=== PATIENT | female | born 1960 | race Caucasian/White ===

== ENCOUNTER → 2024-09-21 | Outpatient (CLI) | payer OTHER, MEDICARE ==
[2024-09-21 08:08] LABS: BASO # 0.1 10*3/uL (0.0-0.1); BASO % 0.8 % (0.0-1.0); EOS # 0.2 10*3/uL (0.0-0.4); EOS % 2.8 % (1.0-4.0); MEAN CELL VOLUME 88.5 fl (81.0-99.0); MEAN CORPUSCULAR HGB 29.2 pg (27.0-31.0); MONO # 0.4 10*3/uL (0.1-1.0); NEUT # 3.3 10*3/uL (2.3-7.9); NEUT % 54.8 % (47.0-73.0); PLATELET COUNT AUTOMATED 353 10*3/uL (130-400); RED BLOOD COUNT 4.97 10*6/uL (4.10-5.10); RED CELL DISTRI WIDTH 12.6 % (0-14.5)
[2024-09-21 09:06] LABS: ALKALINE PHOSPHATASE 78 U/L (46-116); BUN 15 mg/dl (9-23); CHLORIDE 106 mmol/L (98-107); CHOLESTEROL 229 mg/dL (<200); LDL CHOLESTEROL 153 mg/dL (9-159); POTASSIUM 4.5 mmol/L (3.4-5.1); SGPT/ALT 32 U/L (5-49); TOTAL PROTEIN 7.1 gm/dL (6.0-8.0); TRIGLYCERIDES 131 mg/dl (<150)
== END | disposition home or self-care (01) ==
LOC: LAB 07:41
PROVIDERS: ATTEND Nurse Practitioner Primary Care
DX: E03.9 Hypothyroidism, unspecified (principal); E78.5 Hyperlipidemia, unspecified; E55.9 Vitamin D deficiency, unspecified; R73.03 Prediabetes

== ENCOUNTER 2024-12-13 10:45 | Inpatient (IN) | payer OTHER, MEDICARE ==
[~2024-12-13] VITALS: Ht 167.6 cm; Wt 111.3 kg
[2024-12-13 11:45] VITALS: BP 138/76; BP 138/91
[2024-12-13] MEDS ORDERED: ALBUTEROL SULFATE HF INH (11:58)
[2024-12-13] MEDS ORDERED: BREO ELLIPTA 11 EACH INH (11:59)
[2024-12-13] MEDS ORDERED: LEVOTHYROXINE100 MC1 PO (12:00)
[2024-12-13] MEDS ORDERED: MONTELUKAST SOD10 MG PO (12:00)
[2024-12-13] MEDS ORDERED: BISACODYL 5 MG TAB PO PRN (12:10)
[2024-12-13] MEDS ORDERED: ACETAMINOPHEN 650 MG SUPP R PRN (12:10)
[2024-12-13] MEDS ORDERED: ACETAMINOPHEN 325 MG TAB PO PRN (12:10)
[2024-12-13] MEDS ORDERED: Magnesium Hydroxide 30 ML UDC PO PRN (12:10)
[2024-12-13] MEDS ORDERED: Ondansetron Hydrochloride 4 MG/2 ML VIAL IV PRN (12:10)
[2024-12-13] MEDS ORDERED: BISACODYL 10 MG SUPP R PRN (12:10)
[2024-12-13] MEDS ORDERED: Albuterol Sulf/Ipratropium 3 ML VIAL NEB SCH (12:51)
[2024-12-13] MEDS ORDERED: MAGNESIUM SULFATE 50 ML IV ONE (13:35)
[2024-12-13 13:42] LABS: BASO % 0.3 % (0.0-1.0); EOS # 0.1 10*3/uL (0.0-0.4); EOS % 0.6 % (1.0-4.0); HEMATOCRIT 40.9 % (37.0-47.0); MEAN CELL VOLUME 86.8 fl (81.0-99.0); MEAN CORPUSCULAR HGB 29.3 pg (27.0-31.0); MEAN CORPUSCULAR HGB CONC 33.7 g/dl (33.0-37.0); MEAN PLATELET VOLUME 8.7 fl (9.6-12.3); MONO % 7.6 % (3.0-9.0); NEUT # 7.9 10*3/uL (2.3-7.9); NEUT % 60.6 % (47.0-73.0); PLATELET COUNT AUTOMATED 387 10*3/uL (130-400); RED BLOOD COUNT 4.71 10*6/uL (4.10-5.10); RED CELL DISTRI WIDTH 12.4 % (0-14.5); WHITE BLOOD COUNT 13.1 10*3/uL (4.8-10.8)
[2024-12-13 14:10] LABS: BUN 20 mg/dl (9-23); CHLORIDE 102 mmol/L (98-107); POTASSIUM 3.5 mmol/L (3.4-5.1)
[2024-12-13] MEDS ORDERED: methylPREDNISolone sod succ 125 MG VIAL IV ONE (15:50)
[2024-12-13 16:00] VITALS: BP 111/79
[2024-12-13] MEDS ORDERED: MED. FROM HOME 1 EACH EA INH SCH (18:55)
[2024-12-13 20:00] VITALS: BP 128/58
[2024-12-13] MEDS ORDERED: methylPREDNISolone sod succ 40 MG VIAL IV SCH ×2 (22:00)
[2024-12-13] MEDS ORDERED: GUAIFENESIN 600 MG TAB ER PO SCH (22:00)
[2024-12-14] VITALS: BP 118/46
[2024-12-14] MEDS ORDERED: Pantoprazole Sodium 20 MG TAB PO SCH (06:00)
[2024-12-14] MEDS ORDERED: Levothyroxine Sodium 100 MCG TAB PO SCH (06:00)
[2024-12-14 06:05] LABS: BASO % 0.5 % (0.0-1.0); EOS # 0.1 10*3/uL (0.0-0.4); EOS % 0.6 % (1.0-4.0); HEMATOCRIT 41.8 % (37.0-47.0); MEAN CELL VOLUME 87.6 fl (81.0-99.0); MEAN CORPUSCULAR HGB 29.1 pg (27.0-31.0); MEAN CORPUSCULAR HGB CONC 33.3 g/dl (33.0-37.0); MONO # 0.5 10*3/uL (0.1-1.0); MONO % 5.7 % (3.0-9.0); NEUT # 5.4 10*3/uL (2.3-7.9); NEUT % 64.5 % (47.0-73.0); PLATELET COUNT AUTOMATED 388 10*3/uL (130-400); RED BLOOD COUNT 4.77 10*6/uL (4.10-5.10); RED CELL DISTRI WIDTH 12.8 % (0-14.5); WHITE BLOOD COUNT 8.4 10*3/uL (4.8-10.8)
[2024-12-14 06:25] LABS: BUN 16 mg/dl (9-23); CHLORIDE 105 mmol/L (98-107)
[2024-12-14 06:30] LABS: POTASSIUM 4.5 mmol/L (3.4-5.1)
[2024-12-14 08:00] VITALS: BP 129/54
[2024-12-14] MEDS ORDERED: Codeine Phosphate/Guaifenesi 10 ML UDC PO SCH (10:00)
[2024-12-14] MEDS ORDERED: Montelukast Sodium 10 MG TAB PO SCH (10:00)
[2024-12-14] MEDS ORDERED: LEVOFLOXACIN 150 ML IV SCH (10:00)
[2024-12-14] MEDS ORDERED: Enoxaparin Sodium 40 MG/0.4 ML SYR SC SCH (10:00)
[2024-12-14 10:15] LABS: BILIRUBIN Negative (Negative); BLOOD Negative (Negative); CLARITY Clear (Clear); COLOR Yellow (Yellow); GLUCOSE Negative (Negative); KETONE Negative (Negative); LEUKO ESTERASE 2+ (Negative); NITRITE Negative (Negative); PH 6.5 (4.5-8.0); UROBILINOGEN 0.2 E.U./dl (0.0-1.0)
[2024-12-14 10:45] LABS: RBC 0-2 rbc/hpf (0-2); WBC 21-30 wbc/hpf (0-5)
[2024-12-14 12:00] VITALS: BP 133/66
[2024-12-14 16:00] VITALS: BP 142/57
[2024-12-14 20:00] VITALS: BP 138/74
[2024-12-15] VITALS: BP 179/95
[2024-12-15 07:30] VITALS: BP 138/78
[2024-12-15 08:00] VITALS: BP 148/62
[2024-12-15 12:00] VITALS: BP 144/61
[2024-12-15 16:00] VITALS: BP 117/51
[2024-12-15 20:00] VITALS: BP 127/61
[2024-12-16] VITALS: BP 135/79
[2024-12-16 08:00] VITALS: BP 150/70
[2024-12-16] MEDS ORDERED: PREDNISONE10 MG PO (08:48)
[2024-12-16] MEDS ORDERED: PANTOPRAZOLE SO20 MG PO (08:48)
[2024-12-16] MEDS ORDERED: LEVOFLOXACIN750 M2 PO (08:48)
== END 2024-12-16 08:48 | disposition home or self-care (01) | DRG 202 ==
LOC: 5E 10:45 → 4E 11:26
PROVIDERS: Student in an Organized Health Care Education/Training Program; ADMIT Internal Medicine; ATTEND Internal Medicine
DX: J45.901 Unspecified asthma with (acute) exacerbation (principal); I50.32 Chronic diastolic (congestive) heart failure; N17.9 Acute kidney failure, unspecified; N39.0 Urinary tract infection, site not specified; J98.11 Atelectasis; J98.4 Other disorders of lung; E78.5 Hyperlipidemia, unspecified; E03.9 Hypothyroidism, unspecified; R73.03 Prediabetes; J30.2 Other seasonal allergic rhinitis; D72.829 Elevated white blood cell count, unspecified; E66.9 Obesity, unspecified; F32.A Depression, unspecified; Z90.711 Acquired absence of uterus with remaining cervical stump; Z82.49 Family history of ischemic heart disease and other diseases of the circulatory system; Z80.8 Family history of malignant neoplasm of other organs or systems; Z83.3 Family history of diabetes mellitus; Z82.5 Family history of asthma and other chronic lower respiratory diseases; Z87.891 Personal history of nicotine dependence; Z78.9 Other specified health status; Z68.39 Body mass index [BMI] 39.0-39.9, adult

== ENCOUNTER → 2025-04-07 | Outpatient (CLI) | payer OTHER, MEDICARE ==
[~2025-04-07] MED LIST: ALBUTEROL SULFATE HF INH; BREO ELLIPTA 11 EACH INH; LEVOFLOXACIN750 M2 PO; LEVOTHYROXINE100 MC1 PO; MONTELUKAST SOD10 MG PO; PANTOPRAZOLE SO20 MG PO; PREDNISONE10 MG PO
[2025-04-07 08:29] LABS: BUN 20 mg/dl (9-23); LDL CHOLESTEROL 123 mg/dL (9-159)
== END | disposition home or self-care (01) ==
LOC: LAB 07:39
PROVIDERS: ATTEND Nurse Practitioner Primary Care
DX: E78.5 Hyperlipidemia, unspecified (principal); E03.9 Hypothyroidism, unspecified; R73.09 Other abnormal glucose

== ENCOUNTER → 2025-04-11 | Outpatient (CLI) | payer OTHER, MEDICARE | END | disposition home or self-care (01) | LOC: MAMMO 02:54 | PROVIDERS: ATTEND Nurse Practitioner Primary Care | DX: Z12.31 Encounter for screening mammogram for malignant neoplasm of breast (principal) ==